=== PATIENT | female | born 2000 | race African-American/Black ===

== ENCOUNTER 2020-11-20 18:57 | Emergency (ER) | payer SELFPAY ==
[~2020-11-20] VITALS: Ht 172.7 cm; Wt 65.9 kg
[2020-11-20 20:05] LABS: COLLECTION METHOD CLEAN CATCH
[2020-11-20 20:39] LABS: MUCOUS Present /lpf; PH 5 (5-8); URINE APPEARANCE Hazy; URINE BACTERIA Rare /hpf; URINE BILIRUBIN Negative (NEGATIVE); URINE BLOOD 2+ (NEGATIVE); URINE COLOR Yellow; URINE GLUCOSE Negative (NEGATIVE); URINE KETONE Trace (NEGATIVE); URINE LEUKOCYTE ESTERASE Negative (NEGATIVE); URINE NITRATE Negative (NEGATIVE); URINE PROTEIN(semi-quant) Negative (NEGATIVE); URINE RBC >50 /hpf; URINE UROBILINOGEN Negative (NEGATIVE)
[2020-11-21 00:03] VITALS: BP 112/64; PULSE 85; TEMP 98.4
== END 2020-11-21 00:07 | disposition home or self-care (01) ==
LOC: COL.ER 18:57
PROVIDERS: Nurse Practitioner
DX: O46.92 Antepartum hemorrhage, unspecified, second trimester (principal); O23.592 Infection of other part of genital tract in pregnancy, second trimester; B37.3 Candidiasis of vulva and vagina; Z3A.19 19 weeks gestation of pregnancy
CPT/HCPCS: J2791

== ENCOUNTER 2020-11-24 01:19 | Outpatient (CLI) | payer SELFPAY ==
--- NOTE | 2020-11-24 01:25 | NUR ---
Pt arrives to unit ambulatory with complaint of heavy vaginal bleeding. Pt changed into gown, oriented to room, call light within reach, bed in low and locked position. Instructed patient to change peripad so we can see blood loss while on unit. Pt recently moved here and has not established care here yet. Pt reports a due date of 04/15 making her 19 weeks and 5 days, first . Pt reports being seen in ED on Wednesday for same complaint and states an US was done to check well being and patient was discharged home and was told to establish care at [facility] but this has not happened yet. Pt states she has had some mild cramping but it has not been bothersome enough for her to take tylenol. Pt states large gush of dark red blood on floor at home and peripad on admission is about 40% covered with pink blood. Doppler FHT's at 150 bpm. [place] on. Admission assessment started. Vital signs obtained.
[2020-11-24 01:45] VITALS: BP 123/69; PULSE 93; TEMP 98.8
--- NOTE | 2020-11-24 01:55 | NUR ---
SVE at this time. Cervix closed/thick/high, scant amount of brown discharge/blood on glove.
--- NOTE | 2020-11-24 02:10 | NUR ---
Discharge instructions reviewed with patient, patient and spouse verbalized understanding. Pt seen ambulating off unit.
== END 2020-11-24 02:10 | disposition home or self-care (01) ==
LOC: LDRO 01:19 → LDR 01:25 → LDRO 02:10
DX: O26.852 Spotting complicating pregnancy, second trimester (principal); Z3A.19 19 weeks gestation of pregnancy
CPT/HCPCS: OP

== ENCOUNTER 2020-11-28 17:59 | Inpatient (IN) | payer OTHER ==
[2020-11-28 18:30] VITALS: BP 106/60; PULSE 90; TEMP 98.4
--- NOTE | 2020-11-28 18:30 | NUR ---
Report received from PAIGE Krueger. RN to bedside to obtain vital signs, doppler for FHTs, and review plan of care.
[2020-11-28 19:35] LABS: COLLECTION METHOD CLEAN CATCH
[2020-11-28 19:38] LABS: BASO % 0.1 % (0.0-2.0); EOS # 0.1 (0.0-0.7); EOS % 0.8 % (0-4.0); GRAN # 5.2 (1.4-6.5); GRAN % 71.1 % (42.2-75.2); HEMOGLOBIN 10.6 g/dl (12.5-16.0); LYMPH # 1.5 (1.2-3.4); LYMPH % 20.1 % (20.0-51.0); MEAN CELL VOLUME 86 fl (80.0-100.0); MEAN CORPUSCULAR HEMOGLOBIN 29 pg (27.0-31.0); MEAN CORPUSCULAR HGB CONC 34 g/dl (33.0-37.0); MEAN PLATELET VOLUME 10.9 fl (7.4-10.4); MONO # 0.6 (0.1-0.6); MONO % 7.6 % (1.7-9.3); PLATELET COUNT 179 K/mm3 (130-400); RED BLOOD COUNT 3.65 M/mm3 (4.10-5.30); REDCELL DISTRIBUTION WIDTH-CV 14.8 % (11.5-14.5)
[2020-11-28 19:40] LABS: HEMATOCRIT 31.4 % (37.0-47.0)
[2020-11-28 19:48] LABS: MUCOUS Present /lpf; PH 5 (5-8); SQUAMOUS EPITHELIAL 0-2 /hpf; URINE APPEARANCE Hazy; URINE BACTERIA None Seen /hpf; URINE BILIRUBIN Negative (NEGATIVE); URINE BLOOD 1+ (NEGATIVE); URINE CALCIUM OXALATE CRYSTAL Present /hpf; URINE COLOR Yellow; URINE GLUCOSE Negative (NEGATIVE); URINE KETONE Negative (NEGATIVE); URINE LEUKOCYTE ESTERASE Negative (NEGATIVE); URINE NITRATE Negative (NEGATIVE); URINE PROTEIN(semi-quant) Negative (NEGATIVE); URINE UROBILINOGEN Negative (NEGATIVE)
[2020-11-28 19:49] LABS: BILIRUBIN,TOTAL 0.3 mg/dL (0.0-1.0); CREATININE, serum 0.53 (0.52-1.25); POTASSIUM 4.1 mmol/L (3.4-5.0); TOTAL PROTEIN 7.8 gm/dL (6.4-8.2)
[2020-11-28 19:55] LABS: TRICYCLIC ANTIDEPRESS URINE NEGATIVE
--- NOTE | 2020-11-28 20:00 | NUR ---
rd lab technician at BS.
[2020-11-28 20:12] LABS: HIV 1/2 Antibodies Non-Reactive; HIV-1p24 Antigen Non-Reactive
--- NOTE | 2020-11-28 20:14 | NUR ---
Roles at bedside reviewing history and discussing plan care.
--- NOTE | 2020-11-28 20:20 | NUR ---
Sterile speculum exam performed by Dr. Moreno. ROM plus obtained. SVE closed/thick/high.
[2020-11-28] MEDS ORDERED: PRENATAL TABLET PO (20:52)
--- NOTE | 2020-11-28 20:55 | NUR ---
ROM plus positive. . Roles at bedside discussing result and options for plan of care. Pt and FOB left alone to discuss plan.
--- NOTE | 2020-11-28 21:30 | NUR ---
Roles at bedside to answer questions. All questions answered, pt and FOB decided to discharge home at this and follow up in office next week. 2149 - Discharge instructions reviewed with patient, verbalized understanding. Pt seen ambulating off unit with FOB.
[2020-11-29 17:20] LABS: HEPATITIS B SURFACE ANTIGEN Negative (Negative)
== END 2020-11-28 21:45 | disposition home or self-care (01) | DRG 833 ==
LOC: LDRO 17:59 → LDR 18:23
PROVIDERS: ADMIT Obstetrics & Gynecology
DX: O46.92 Antepartum hemorrhage, unspecified, second trimester (principal)